=== PATIENT | male | born 1945 | race Caucasian/White ===

== ENCOUNTER → 2020-10-24 15:30 | Outpatient (CLI) | payer MEDICARE, SELFPAY ==
[2020-10-24 15:34] LABS: Microscopic, Urine URINE MICROSCOPIC (MICROSCOPIC)
[2020-10-24 18:32] LABS: Appearance,Urine CLEAR (Clear); Bilirubin,Urine Negative (Negative); Blood, Urine Negative (Negative); Color,Urine YELLOW (Yellow); Glucose,Urine (UA) Negative (Negative); Ketones,Urine TRACE (Negative); Leukocyte Esterase,Urine Negative (Negative); Nitrate,Urine Negative (Negative); PH,Urine 5.5 (5.0-8.5); Protein,Urine Negative (Negative); Specific Gravity, Urine >= 1.030 (1.005-1.030); Urobilinogen,Urine 0.2 EU/dl (0.2)
[2020-10-24 18:41] LABS: WBC,Urine Occasional #/hpf (0-3)
== END ==
PROVIDERS: Visit Provider Family Medicine
DX: E87.8 Other disorders of electrolyte and fluid balance, not elsewhere classified (principal)
CPT/HCPCS: 81001

== ENCOUNTER 2024-02-07 12:56 | Outpatient (RCR) | payer MEDICARE, SELFPAY | END 2024-02-07 12:58 | disposition home or self-care (01) | LOC: PT 12:56 | PROVIDERS: Visit Provider Family Medicine | DX: L89.213 Pressure ulcer of right hip, stage 3 (principal) | CPT/HCPCS: 97163 ==